=== PATIENT | male | born 1950 | race Caucasian/White ===

== ENCOUNTER → 2020-03-05 07:36 | Outpatient (CLI) | payer MEDICARE, SELFPAY ==
[2020-03-05] MEDS: COVID-19 VACC #1, MRNA(MOD) 100 MCG/0.5 ML VIAL IM (07:44)
== END ==
PROVIDERS: Visit Provider Internal Medicine
DX: Z23 Encounter for immunization (principal)
CPT/HCPCS: 0011A; 91301

== ENCOUNTER → 2020-03-10 14:44 | Outpatient (ROUT) | payer MEDICARE, SELFPAY | PROVIDERS: Visit Provider Physician Assistant | DX: R35.0 Frequency of micturition (principal) | CPT/HCPCS: 87086 ==

== ENCOUNTER → 2020-03-10 19:28 | Outpatient (ROUT) | payer MEDICARE, OTHER, SELFPAY ==
[2020-03-10 20:08] LABS: Add Manual Diff / Slide Review NO; Basophils Absolute Auto 0 /uL (0-100); Basophils Percent Auto 0.5 % (0-2); Eosinophils Absolute Auto 0 /uL (0-450); Eosinophils Percent Auto 0.5 % (2-4); Hematocrit 46.4 % (41-53); Hemoglobin 15.9 g/dL (13.5-17.5); Lymphocytes Absolute Auto 4000 /uL (1100-4500); Lymphocytes Percent Auto 45.5 % (25-40); Mean Corpuscular HGB Conc 34.2 % (30-36); Mean Corpuscular Hemoglobin 32.1 PG (26-34); Mean Corpuscular Volume 93.9 fL (80-100); Monocytes Absolute Auto 800 /uL (0-900); Neutrophils Absolute Auto 3900 /uL (1500-7000); Neutrophils Percent Auto 44.5 % (50-75); Platelet Count 221 X10^3/uL (150-400); Red Blood Cell Count 4.94 X10^6/uL (4.5-5.9); Red Cell Distribution Width 13.9 % (11.6-14.8); White Blood Cell Count 8.8 X10^3/uL (4.5-11.0)
[2020-03-10 20:17] LABS: HEMOLYSIS 48 (0-50); Iron 101 ug/dL (49-181)
[2020-03-10 20:20] LABS: Alanine Aminotransferase 9 IU/L (<50); Albumin 4.2 g/dL (3.5-5.0); Albumin Globulin Ratio 1.3 (1.0-2.8); Alkaline Phosphatase 83 U/L (38-126); Aspartate Aminotransferase 26 IU/L (17-59); BUN Creatinine Ratio 20.5 (6-22); Bilirubin Total 0.5 mg/dL (0.2-1.3); Blood Urea Nitrogen 15 mg/dL (9-20); Calcium 9.7 mg/dL (8.4-10.2); Carbon Dioxide 28 mmol/L (22-32); Chloride 102 mmol/L (98-107); Cholesterol 185 mg/dL (140-199); Estimated Glomerular Filt Rate > 60.0 mL/min (>60); Globulin 3.3 g/dL (1.7-4.1); Glucose 81 mg/dL (80-110); HDL Cholesterol 41 mg/dL (40-60); HEMOLYSIS 50 (0-50); LDL Cholesterol Calculated 116 mg/dL (<100); Potassium 4.4 mmol/L (3.4-5.1); Sodium 136 mmol/L (137-145); Total Protein 7.5 g/dL (6.3-8.2); Triglycerides 142 mg/dL (35-150)
[2020-03-10 20:29] LABS: Percent Iron Saturation 33 % (20-50); Total Iron Binding Capacity 310 ug/dL (261-462); Transferrin 217 mg/dL (206-381)
[2020-03-10 20:48] LABS: Prostate Specific Antigen Scrn 12.4 ng/mL (0.1-4.0)
[2020-03-10 20:50] LABS: TSH w/ Reflex to FT4 1.79 uIU/mL (0.47-4.68)
[2020-03-10 20:53] LABS: Ferritin 69 ng/mL (18-464)
== END ==
PROVIDERS: Visit Provider Physician Assistant
DX: N40.1 Benign prostatic hyperplasia with lower urinary tract symptoms (principal); R35.0 Frequency of micturition; D64.9 Anemia, unspecified; I25.10 Atherosclerotic heart disease of native coronary artery without angina pectoris; E78.2 Mixed hyperlipidemia; R53.83 Other fatigue; Z12.5 Encounter for screening for malignant neoplasm of prostate
CPT/HCPCS: 80053; 80061; 82728; 83540; 83550; 84443; 85025; 87086; G0103

== ENCOUNTER → 2020-04-02 07:23 | Outpatient (CLI) | payer MEDICARE, OTHER, SELFPAY ==
[2020-04-02] MEDS: COVID-19 VACC #2, MRNA(MOD) 100 MCG/0.5 ML VIAL IM (07:34)
== END ==
PROVIDERS: Visit Provider Internal Medicine
DX: Z23 Encounter for immunization (principal)
CPT/HCPCS: 0012A; 91301

== ENCOUNTER → 2020-04-14 08:59 | Outpatient (CLI) | payer MEDICARE, OTHER, SELFPAY ==
[2020-04-14 11:34] LABS: COVID19 -Nasal RAPID Negative (Negative)
== END ==
PROVIDERS: Visit Provider Physician Assistant
DX: Z01.812 Encounter for preprocedural laboratory examination (principal); Z20.822 Contact with and (suspected) exposure to COVID-19
CPT/HCPCS: 87635; C9803

== ENCOUNTER 2020-04-16 06:16 | Day surgery (SDC) | payer MEDICARE, OTHER, SELFPAY ==
[2020-04-16] VITALS (7 sets, daily range): BP systolic 97–148; BP diastolic 45–71; PULSE 41–70; RESP 18–22; TEMP 36–36.2; O2SAT 93–96
[2020-04-16] MEDS: LACTATED RINGERS 1,000 ML 42 ML IV (07:15)
--- NOTE | 2020-04-16 07:43 | P.HP_ITS ---
History of Present Illness History of Present Illness Date Patient Seen: 04/16/20 Time Patient Seen: 07:43 Chief complaint: SDC Narrative: Sandeep notes ongoing triggering of his right middle finger. He also notes he has got some slight thickening on left hand. Patient History Medical History Aortic regurgitation Ascending aortic aneurysm Bursitis of left shoulder CAD (coronary artery disease) Cardiomyopathy Chronic anticoagulation Diverticular disease Dupuytren's contracture of right hand Enlarged prostate with lower urinary tract symptoms (LUTS) Essential hypertension History of depression History of kidney stones Inferolateral myocardial infarction (~09/2006) Mixed hyperlipidemia Obesity Patent foramen ovale Smoker Trigger finger, right middle finger Surgical History History of colonoscopy (~2018) History of coronary angioplasty with insertion of stent (~09/2006) History of excision of pilonidal cyst Family & Social History Social History: household members spouse Tobacco & Substance use: Tobacco type cigarettes Smoking Status Current some day smoker Smoking packs per day 0.5 alcohol intake current alcohol intake frequency a few times a week Substance Use Type former substance user Meds Home Medications and Allergies Home Medications Medication Instructions Recorded Confirmed Type albuterol sulfate [Ventolin HFA] 1 puff INHALATION Q4H PRN 03/21/20 04/16/20 History cholecalciferol (vitamin D3) 125 mcg PO DAILY 03/21/20 03/21/20 History [Vitamin D3] clopidogrel 75 mg PO DAILY 03/21/20 04/16/20 History lisinopril 40 mg PO DAILY 03/21/20 04/16/20 History tamsulosin 0.4 mg PO DAILY 03/21/20 04/16/20 History trazodone 450 mg PO DAILY 03/21/20 04/16/20 History zinc mg PO DAILY 03/21/20 History Allergies Allergy/AdvReac Type Severity Reaction Status Date / Time Fish Containing Products Allergy Unknown Unlisted Verified 04/16/20 06:44 penicillin G Allergy Unknown Swelling - Verified 04/16/20 06:44 mouth atenolol AdvReac Unknown bradycardia Verified 04/16/20 06:44 atorvastatin AdvReac Unknown muscle Verified 04/16/20 06:44 aches Review of Systems Review of Systems ROS: Yes All systems reviewed with the patient and are negative except as other villagomez documented Exam Vital Signs (past 8 hours): - 04/16/20 07:09 Temperature 96.8 F L Pulse Rate 51 L Respiratory Rate 18 Blood Pressure 148/71 H Pulse Oximetry 96 Oxygen Delivery Method Room Air Narrative Exam Narrative: HEENT is benign lungs are clear cor regular rate and rhythm abdomen soft benign, right hand shows significant triggering of the right middle finger, skin skin intact, small rash on the left forearm, minimal tenderness and thickening along the palm of the right hand Assessment & Plan Assessment & Plan narrative: Impression is right middle finger trigger finger. Plan right middle finger trigger finger release. Procedure alternatives risks benefits and complications were discussed in detail.
--- NOTE | 2020-04-16 07:43 | PM.PREOP ---
Pre-operative Note COVID-19 COVID-19 status: Negative Interval Note History & Physical reviewed/Exam performed by Physician: Yes Changes to H&P: No
--- NOTE | 2020-04-16 07:47 | PM.OP.1 ---
Operative Date/Time/Diagnoses Date of procedure: 04/16/20 Time of procedure: 07:47 Pre-op diagnosis: Right middle trigger finger Post-op diagnosis: same Procedure & Clinicians Procedure: Right middle finger trigger finger release Same procedure as scheduled: Yes Indications: Ongoing right middle finger triggering with distinct locking Surgeon: Katja Vieyra Anesthesia Type: General Operative Notes Findings: Moderate tenosynovitis, slight tendon deformity, good quality release Closure Type: primary Specimen(s): none sent Estimated Blood Loss (mL): 10 Blood products transfused: none Tourniquet time (min): 24 Procedure in detail: Patient is brought to the operating room. Time-out was performed and antibiotics were given. His right upper extremities prepped draped standard sterile fashion. High arm tourniquet was elevated for to 250 mm of mercury for 24 minutes. An incision was made at the base of the right middle finger and A1 kareen dissection was carried out through skin subcutaneous tissues. The fascia was released without difficulty the tendon sheath was identified and the A1 kareen was released without difficulty. Multiple range of motion cycles were performed with the finger. There was no residual triggering. There was some thickening along the flexor tendon. It was gently debrided. The wound was irrigated and injected with Marcaine. Wound was closed with interrupted nylon and dressed sterilely. Complications: none Post-operative Condition: stable Disposition: Acute Care Plan for aftercare: Move fingers. Change to a Band-Aid in 48 hours.
[2020-04-16] MEDS: CLINDAMYCIN 900 MG/50 ML PIGGYBACK 50 MG IV (07:52)
--- NOTE | 2020-04-16 08:04 | SUR.OPER ---
Supine on padded OR bed, head on pillow, arms secured on padded arm boards at <90 degrees abduction, legs uncrossed, safety belt at thigh, tape over blanket over lower legs.
[2020-04-16] MEDS: BUPIVACAINE 0.25% (PF) VIAL 30 ML INJ (08:11)
--- NOTE | 2020-04-16 08:39 | SUR.PHASEI ---
Patient arousable to verbal stimuli.
== END 2020-04-16 09:20 | disposition home or self-care (01) ==
PROVIDERS: PCP Physician Assistant; Referring Provider Orthopaedic Surgery; Visit Provider Orthopaedic Surgery
PROC: (CPT 26055; principal; 2020-04-16 07:45)
DX: M65.331 Trigger finger, right middle finger (principal); I25.10 Atherosclerotic heart disease of native coronary artery without angina pectoris; F17.210 Nicotine dependence, cigarettes, uncomplicated
CPT/HCPCS: 26055; J2250; J2704; J3010

== ENCOUNTER → 2021-05-07 11:27 | Outpatient (CLI) | payer MEDICARE, OTHER, SELFPAY ==
--- NOTE | 2021-05-07 | DI.RAD.S_ITS ---
PROCEDURE: XR CHEST 2V INDICATIONS: Nicotine dependence, unspecified, uncomplicated TECHNIQUE: 2 views of the chest were acquired. COMPARISON: None. FINDINGS: Surgical changes and devices: None. Lungs and pleura: Lungs are clear. No pleural effusions or pneumothorax. Mediastinum: Mediastinal contours are normal. Heart size is normal. Bones and chest wall: No suspicious bony abnormalities. Soft tissues appear unremarkable. IMPRESSION: No acute cardiopulmonary process demonstrated radiographically. Dictated by: Thanh Han M.D. on 05/07/2021 at 13:49 Approved by: Thanh Han M.D. on 05/07/2021 at 13:49
== END ==
PROVIDERS: PCP Physician Assistant; Referring Provider Physician Assistant; Visit Provider Physician Assistant
DX: R53.83 Other fatigue (principal); F17.200 Nicotine dependence, unspecified, uncomplicated
CPT/HCPCS: 71046

== ENCOUNTER → 2021-06-09 08:55 | Outpatient (CLI) | payer MEDICARE, OTHER, SELFPAY ==
--- NOTE | 2021-06-09 | DI.US.S_ITS ---
PROCEDURE: US ABD AORTA ANEURYSM SCREEN INDICATIONS: SCREENING AAA TECHNIQUE: Real time scanning was performed of the aorta and iliac arteries, with image documentation. COMPARISON: None. FINDINGS: Aorta: Proximal aortic diameter measures 3.4 cm. Mid-aorta measures 2.4 cm. Distal aortic diameter is 2.1 cm. Iliac arteries: Right common iliac artery measures 1.3 cm. Left common iliac artery measures 1.2 cm. IMPRESSION: Proximal abdominal aortic aneurysm. 3 year follow-up recommended. Dictated by: Shae Zuluaga M.D. on 06/09/2021 at 9:42 Approved by: Shae Zuluaga M.D. on 06/09/2021 at 9:42
== END ==
PROVIDERS: PCP Physician Assistant; Referring Provider Physician Assistant; Visit Provider Physician Assistant
DX: Z13.6 Encounter for screening for cardiovascular disorders (principal); I71.4 Abdominal aortic aneurysm, without rupture
CPT/HCPCS: 76706

== ENCOUNTER → 2021-06-16 14:01 | Outpatient (CLI) | payer MEDICARE, OTHER, SELFPAY ==
[2021-06-16 14:44] LABS: COVID19 -Nasal RAPID POSITIVE (Negative)
== END ==
PROVIDERS: PCP Physician Assistant; Visit Provider Surgery
DX: Z20.822 Contact with and (suspected) exposure to COVID-19 (principal)
CPT/HCPCS: 87635; C9803

== ENCOUNTER → 2022-05-08 10:20 | Outpatient (CLI) | payer MEDICARE, OTHER, SELFPAY ==
--- NOTE | 2022-05-08 10:22 | DI.RAD.S_ITS ---
PROCEDURE: XR ANKLE RT MIN 3V INDICATIONS: Right ankle pain TECHNIQUE: 3 views of the ankle were acquired. COMPARISON: None. FINDINGS: Bones: No fractures or dislocations. Ankle mortise is normally aligned. No suspicious bony lesions. The talar dome demonstrates no bree abnormality. Accessory ossicles can be seen superior to the distal talus on the lateral view. Age-appropriate bony degenerative changes are seen. Plantar and Achilles calcaneal spurs are seen. Soft tissues: Generalized soft tissue swelling is seen. IMPRESSION: Newly soft tissue swelling, without a focal acute bony abnormality seen by plain film. Dictated by: Carter Maier M.D. on 05/08/2022 at 11:23 Approved by: Carter Maier M.D. on 05/08/2022 at 11:24
== END ==
PROVIDERS: PCP Physician Assistant; Referring Provider Nurse Practitioner Family; Visit Provider Nurse Practitioner Family
DX: M25.571 Pain in right ankle and joints of right foot (principal); M79.89 Other specified soft tissue disorders
CPT/HCPCS: 73610

== ENCOUNTER 2022-05-26 14:11 | Day surgery (SDC) | payer MEDICARE, OTHER, SELFPAY ==
[2022-05-26] MEDS: LACTATED RINGERS 1,000 ML 100 ML IV (15:04)
[2022-05-26 15:07] VITALS: BP 131/82; PULSE 72; RESP 16; TEMP 36.2; O2SAT 96; BMI 28.0
--- NOTE | 2022-05-26 15:10 | PM.HP.1 ---
History of Present Illness History of Present Illness Chief complaint: Colonoscopy Narrative: Rectal bleeding PFSH Medical History Aortic regurgitation Ascending aortic aneurysm Bursitis of left shoulder CAD (coronary artery disease) Cardiomyopathy Chronic anticoagulation Diverticular disease Dupuytren's contracture of right hand Enlarged prostate with lower urinary tract symptoms (LUTS) Essential hypertension History of depression History of kidney stones Inferolateral myocardial infarction (~09/2006) Mixed hyperlipidemia Obesity Patent foramen ovale Smoker Trigger finger, right middle finger Surgical History History of colonoscopy (~2018) History of coronary angioplasty with insertion of stent (~09/2006) History of excision of pilonidal cyst Social History household members: spouse Smoking Status: Current some day smoker alcohol intake: current Meds Home Medications and Allergies Home Medications Medication Instructions Recorded Confirmed Type clopidogrel 75 mg tablet 75 mg PO DAILY 03/21/20 06/12/21 History lisinopril 40 mg tablet 40 mg PO DAILY 03/21/20 06/12/21 History tamsulosin 0.4 mg capsule 0.4 mg PO DAILY 03/21/20 06/12/21 History atorvastatin 20 mg tablet 20 mg PO DAILY 06/11/21 06/12/21 History naproxen sodium 220 mg tablet 220 mg PO DAILY PRN Pain 06/11/21 06/12/21 History (Aleve) sulfamethoxazole 800 1 tab PO Q12H #10 tabs 06/11/21 06/12/21 Rx mg-trimethoprim 160 mg tablet (Bactrim DS) Allergies Allergy/AdvReac Type Severity Reaction Status Date / Time penicillin G Allergy Severe Swelling - Verified 06/16/21 07:33 mouth Fish Containing Products Allergy Unknown Unlisted Verified 06/11/21 10:59 atenolol AdvReac Unknown bradycardia Verified 06/11/21 10:59 atorvastatin AdvReac Unknown muscle Verified 06/11/21 10:59 aches Exam Narrative Exam Narrative: Oropharynx free of lesions Chest clear to auscultation percussion Cardiac exam reveals no S3 or murmur Assessment & Plan Assessment & Plan narrative: Rectal bleeding rule out colonic neoplasia. Risks, benefits, the alternatives been explained.
--- NOTE | 2022-05-26 15:10 | PM.OP.COLON ---
Operative Date/Time/Diagnoses Date of procedure: 05/26/22 Pre-op diagnosis: See indication and findings Procedure & Clinicians Study performed: Colonoscopy Indications: Rectal bleeding Surgeon: Isis Pham Procedure Notes Procedure in detail: After informed consent was obtained the patient was placed in left lateral decubitus position. The video colonoscope was introduced the rectum slowly advanced. Preparation was poor had. On slow withdrawal mucosa was carefully examined. The scope was removed. The patient tolerated procedure well. Complications none Blood loss none Sedation mac Findings 1. Poor prep making it difficult to perform procedure 2. Very narrowed lumen in the sigmoid colon without clear evidence of malignancy 3. 1 cm polyp in the rectum left intact for next attempt Given the poor prep and the difficulty getting through the sigmoid felt the should be rescheduled with a more advanced prep and use of a pediatric scope.
[2022-05-26 16:02] VITALS: BP 137/81; PULSE 78; RESP 40; TEMP 36.2; O2SAT 87
[2022-05-26 16:06] VITALS: PULSE 68; RESP 35; O2SAT 95
--- NOTE | 2022-05-26 16:10 | SUR.PHASEI ---
Respiratory rate slowed while awake, then increased again while dozing.
[2022-05-26 16:12] VITALS: BP 121/69; PULSE 64; RESP 36; O2SAT 93
[2022-05-26 16:17] VITALS: BP 129/81; PULSE 64; RESP 37; TEMP 37.1; O2SAT 92
[2022-05-26 16:21] VITALS: BP 130/66; PULSE 77; RESP 22; O2SAT 94
== END 2022-05-26 16:42 | disposition home or self-care (01) ==
PROVIDERS: PCP Physician Assistant; Referring Provider Internal Medicine Gastroenterology; Visit Provider Internal Medicine Gastroenterology
PROC: 0DJD8ZZ Inspection of Lower Intestinal Tract, Via Natural or Artificial Opening Endoscopic (ICD-10-PCS; CPT 45378; principal; 2022-05-26 15:30)
DX: K62.5 Hemorrhage of anus and rectum (principal); Z53.09 Procedure and treatment not carried out because of other contraindication
CPT/HCPCS: 45378; J2704